=== PATIENT | male | born 1995 | race Caucasian/White ===

== ENCOUNTER 2022-06-08 | Emergency (ER) | payer OTHER ==
[~2022-06-08] VITALS: Ht 180.3 cm; Wt 77.1 kg
[~2022-06-08] MED LIST: AMOX875 PO; Zofran Odt4 MG SL
[2022-06-08] MEDS ORDERED: NARCAN4 M1 (00:24)
== END 2022-06-08 01:00 | disposition home or self-care (01) ==
LOC: ER
DX: T40.411A Poisoning by fentanyl or fentanyl analogs, accidental (unintentional), initial encounter (principal); F17.210 Nicotine dependence, cigarettes, uncomplicated
CPT/HCPCS: 99284

== ENCOUNTER 2022-06-13 15:48 | Emergency (ER) | payer OTHER ==
[~2022-06-13] VITALS: Ht 180.3 cm; Wt 77.1 kg
[~2022-06-13 15:48] MED LIST changes: +NARCAN4 M1
== END 2022-06-13 17:15 | disposition home or self-care (01) ==
LOC: ER 15:48
DX: S63.501A Unspecified sprain of right wrist, initial encounter (principal); V00.131A Fall from skateboard, initial encounter; Y93.51 Activity, roller skating (inline) and skateboarding; F17.200 Nicotine dependence, unspecified, uncomplicated
CPT/HCPCS: 29125; 73110; 99283-25

== ENCOUNTER 2024-02-18 12:01 | Emergency (ER) | payer OTHER ==
[~2024-02-18] VITALS: Ht 180.3 cm; Wt 82.5 kg
[2024-02-18 12:21] VITALS: BP 142/81
[2024-02-18] MEDS ORDERED: BUPRENORPHIN-N1 EAC1 SL (12:23)
[2024-02-18] MEDS ORDERED: Ketorolac Tromethamine 30mg Vial IV ONE (13:40)
== END 2024-02-18 15:07 | disposition home or self-care (01) ==
LOC: ER 12:01
DX: S52.182A Other fracture of upper end of left radius, initial encounter for closed fracture (principal); F17.200 Nicotine dependence, unspecified, uncomplicated; W15.XXXA Fall from cliff, initial encounter
CPT/HCPCS: 29125; 73090; 73130; 96374-59; 99283-25; J1885

== ENCOUNTER 2024-09-06 16:10 | Emergency (ER) | payer OTHER ==
[~2024-09-06] VITALS: Ht 180.3 cm; Wt 82.5 kg
[~2024-09-06 16:10] MED LIST changes: +BUPRENORPHIN-N1 EAC1 SL
[2024-09-06 16:43] VITALS: BP 147/105
[2024-09-06] MEDS ORDERED: Trimethoprim/Sulfamethoxazole DS Tab PO ONE (17:50)
[2024-09-06] MEDS ORDERED: Cephalexin Monohydrate 500 MG Cap PO ONE (17:50)
[2024-09-06] MEDS ORDERED: CEPH500 PO (17:52)
[2024-09-06] MEDS ORDERED: BACTRIM DS TAB1 EAC1 PO (17:52)
== END 2024-09-06 17:53 | disposition home or self-care (01) ==
LOC: ER 16:10
DX: K13.0 Diseases of lips (principal); F17.200 Nicotine dependence, unspecified, uncomplicated
CPT/HCPCS: 99283; A9270